=== PATIENT | female | born 1990 | race Caucasian/White ===

== ENCOUNTER → 2018-10-27 | Outpatient (CLI) | payer OTHER ==
[~2018-10-27] MED LIST: ALBU90OI; CODACEE120 PO; IBUP800; LABE100 PO; METF500 PO; ORTHO; OXYACE5T; Prednisone20 MG PO; SERT50; Verotin-Gr Cap1 EACH PO; YASMIN
== END | disposition home or self-care (01) ==
LOC: LAB SHORT 12:26 → LAB 12:26
PROVIDERS: Advanced Practice Midwife
DX: Z01.419 Encounter for gynecological examination (general) (routine) without abnormal findings (principal)
CPT/HCPCS: G0123

== ENCOUNTER 2021-10-11 00:28 | Emergency (ER) | payer BC, OTHER ==
[~2021-10-11] VITALS: Ht 160 cm; Wt 135.2 kg
[2021-10-11 01:43] LABS: Source, Urine Clean Catch
[2021-10-11 01:51] LABS: Bilirubin, Urine Neg (Neg); Blood, Urine Neg (Neg); Glucose Qualitative, Urine Neg (Neg); Ketones, Urine Neg (Neg); Leukocyte Esterase, Urine Neg (Neg); Nitrite, Urine Neg (Neg); Protein, Urine 2+ (Neg); Specific Gravity, Urine 1.015 (1.003-1.022); Urobilinogen, Urine NORM (Normal)
[2021-10-11 02:05] LABS: BASOPHILS ABSOLUTE AUTO 0.06 K/mm3 (0.00-0.23); BASOPHILS PERCENT AUTO 1 % (0-2); EOSINOPHILS ABSOLUTE AUTO 0.33 K/mm3 (0.00-0.68); EOSINOPHILS PERCENT AUTO 3 % (0-6); Hematocrit 44.7 % (33.0-51.0); Hemoglobin 14.3 g/dL (11.5-16.0); IMMATURE GRAN ABSOLUTE AUTO 0.03 K/mm3 (0.00-0.10); IMMATURE GRAN PERCENT AUTO 0 % (0-1); LYMPHOCYTES ABSOLUTE AUTO 3.89 K/mm3 (0.84-5.20); LYMPHOCYTES PERCENT AUTO 35 % (21-46); MONOCYTES ABSOLUTE AUTO 0.91 K/mm3 (0.16-1.47); MONOCYTES PERCENT AUTO 8 % (4-13); Mean Corpuscular HGB 26.8 pg (26.0-34.0); Mean Corpuscular Volume 84 fL (80-100); Mean Platelet Volume 8.5 fL (9.1-12.4); NEUTROPHILS ABSOLUTE AUTO 5.97 K/mm3 (1.96-9.15); NEUTROPHILS PERCENT AUTO 53 % (41-73); Platelet Count 319 K/mm3 (150-400); RDW Coefficient Variation 13.7 % (11.7-14.2); RDW Standard Deviation 41.8 fL (35.1-46.3); Red Blood Cell Count 5.33 M/mm3 (3.80-5.20); White Blood Cell Count 11.19 K/mm3 (4.00-11.30)
[2021-10-11 02:08] LABS: Albumin, Blood 3.7 g/dL (3.4-5.0); Albumin/Globulin Ratio 0.9 (0.8-1.8); Bilirubin, Total 0.3 mg/dL (0.1-1.0); Bun/Creatinine Ratio 18.5 (12.0-20.0); Calcium, Blood 9.5 mg/dL (8.5-10.1); Creatinine, Blood 0.6 mg/dL (0.40-1.00); Globulin, Blood 4.3 g/dL (2.2-4.0); Potassium, Blood 4.3 mmol/L (3.5-5.5)
[2021-10-11 02:12] LABS: Amorphous Light (0-Heavy); Appearance, Urine Clear (Clear); Bacteria Few /hpf; Color, Urine Yellow (P-Yellow); Red Blood Cells, Urine Not Seen /hpf (0-2); Squamous Epithelial Cells Mod /hpf (Few); White Blood Cells, Urine 0-2 /hpf (0-5)
[2021-10-11] MEDS ORDERED: ONDA4ODT MM (05:51)
== END 2021-10-11 05:59 | disposition home or self-care (01) ==
LOC: ER 00:28
PROVIDERS: Student in an Organized Health Care Education/Training Program
DX: R10.12 Left upper quadrant pain (principal); R11.2 Nausea with vomiting, unspecified; J45.909 Unspecified asthma, uncomplicated; Z79.899 Other long term (current) drug therapy; Z91.041 Radiographic dye allergy status; Z91.040 Latex allergy status
CPT/HCPCS: 36415; 74177; 80053; 81001; 81025; 85025; Q9967

== ENCOUNTER 2022-02-25 21:38 | Emergency (ER) | payer BC, OTHER ==
[~2022-02-25] VITALS: Ht 162.6 cm; Wt 136.1 kg
[~2022-02-25 21:38] MED LIST changes: +BENZ100A PO; +IBUP800 PO; +LIDO700A20 TOP; +ONDA4ODT MM; -SERT50; +SERT50 PO
[2022-02-25] MEDS ORDERED: METF500C PO (23:51)
== END 2022-02-26 00:23 | disposition home or self-care (01) ==
LOC: ER 21:38
DX: S23.29XA Dislocation of other parts of thorax, initial encounter (principal); J45.909 Unspecified asthma, uncomplicated; Z91.040 Latex allergy status; Z91.041 Radiographic dye allergy status; Z79.899 Other long term (current) drug therapy; X58.XXXA Exposure to other specified factors, initial encounter
CPT/HCPCS: 71046; A9270; J1885

== ENCOUNTER → 2022-03-26 | Outpatient (CLI) | payer BC, OTHER ==
[~2022-03-26] MED LIST changes: +METF500C PO
== END | disposition home or self-care (01) ==
LOC: LAB SHORT 08:03 → LAB 08:03 → PLD 08:03
DX: D22.9 Melanocytic nevi, unspecified (principal)
CPT/HCPCS: 88305

== ENCOUNTER 2023-12-11 12:43 | Emergency (ER) | payer BC ==
[~2023-12-11] VITALS: Ht 160 cm; Wt 142.9 kg
[2023-12-11] MEDS ORDERED: Ondansetron HCl 2 MG / ML 2ML Vial IV PRN (13:30)
[2023-12-11 13:58] LABS: BASOPHILS ABSOLUTE AUTO 0.05 K/mm3 (0.00-0.23); BASOPHILS PERCENT AUTO 1 % (0-2); EOSINOPHILS ABSOLUTE AUTO 0.12 K/mm3 (0.00-0.68); EOSINOPHILS PERCENT AUTO 1 % (0-6); Hematocrit 40.5 % (33.0-51.0); Hemoglobin 13.4 g/dL (11.5-16.0); IMMATURE GRAN ABSOLUTE AUTO 0.04 K/mm3 (0.00-0.10); IMMATURE GRAN PERCENT AUTO 0 % (0-1); LYMPHOCYTES ABSOLUTE AUTO 2.95 K/mm3 (0.84-5.20); LYMPHOCYTES PERCENT AUTO 29 % (21-46); MONOCYTES PERCENT AUTO 6 % (4-13); Mean Corpuscular HGB Conc 33.1 g/dL (31.5-36.5); Mean Corpuscular Volume 79 fL (80-100); Mean Platelet Volume 8.6 fL (9.1-12.4); NEUTROPHILS ABSOLUTE AUTO 6.58 K/mm3 (1.96-9.15); NEUTROPHILS PERCENT AUTO 64 % (41-73); Platelet Count 314 K/mm3 (150-400); RDW Coefficient Variation 14.7 % (11.7-14.2); RDW Standard Deviation 41.9 fL (35.1-46.3); Red Blood Cell Count 5.15 M/mm3 (3.80-5.20); White Blood Cell Count 10.34 K/mm3 (4.00-11.30)
[2023-12-11 14:25] LABS: Albumin, Blood 3.7 g/dL (3.4-5.0); Albumin/Globulin Ratio 0.9 (0.8-1.8); Bilirubin, Total 0.5 mg/dL (0.1-1.0); Bun/Creatinine Ratio 18.5 (12.0-20.0); Calcium, Blood 9.6 mg/dL (8.5-10.1); Creatinine, Blood 0.6 mg/dL (0.40-1.00); Globulin, Blood 4.2 g/dL (2.2-4.0); Total Protein, Blood 7.9 g/dL (6.4-8.2)
[2023-12-11] MEDS ORDERED: Ketorolac Tromethamine 30mg Vial IV ONE (15:20)
[2023-12-11] MEDS ORDERED: Metoclopramide HCl 5MG / ML 2ML Vial IV ONE (15:20)
[2023-12-11] MEDS ORDERED: OXYC5 PO (15:58)
[2023-12-11] MEDS ORDERED: ONDA4ODT MM (15:58)
[2023-12-11] MEDS ORDERED: ZOLOFT50 MG PO (15:58)
[2023-12-11] MEDS ORDERED: BUDESONIDE-FO10.2 G2 INH (15:58)
[2023-12-11] MEDS ORDERED: NS 1,000 ML IV SCH (16:20)
[2023-12-11] MEDS ORDERED: Reglan10 MG PO (17:04)
[2023-12-11] MEDS ORDERED: Percocet 5-3251 EACH PO (17:04)
[2023-12-11 17:30] VITALS: BP 166/93
== END 2023-12-11 17:49 | disposition home or self-care (01) ==
LOC: ER 12:43
PROVIDERS: Student in an Organized Health Care Education/Training Program
DX: G89.18 Other acute postprocedural pain (principal); R10.31 Right lower quadrant pain; R11.2 Nausea with vomiting, unspecified; Z88.8 Allergy status to other drugs, medicaments and biological substances; Z91.040 Latex allergy status; Z79.899 Other long term (current) drug therapy; Z79.84 Long term (current) use of oral hypoglycemic drugs; J45.909 Unspecified asthma, uncomplicated; G43.909 Migraine, unspecified, not intractable, without status migrainosus
CPT/HCPCS: 74177; 80053; 85025; 96361; 96374-59; 96375; 99284-25; J1885; J2405; J2765; J7030; Q9967

== ENCOUNTER 2024-07-28 08:50 | Day surgery (SDC) | payer BC, OTHER ==
[~2024-07-28] VITALS: Ht 162.6 cm; Wt 148.7 kg
[~2024-07-28 08:50] MED LIST changes: +BUDESONIDE-FO10.2 G2 INH; +Lactated Ringer's 1,000 ML IV SCH; +OXYC5 PO; +OZEMPIC1 MG/0.72 SC; +PANT20 PO; +Percocet 5-3251 EACH PO; +Reglan10 MG PO; +ZOLOFT50 MG PO
[2024-07-28] MEDS ORDERED: Lidocaine HCl 4% 5 ML SDA ONE (09:31)
[2024-07-28] MEDS ORDERED: propofoL 60 ML IV ONE (09:32)
[2024-07-28] MEDS ORDERED: propofoL 20 ML IV ONE (10:57)
[2024-07-28 11:20] VITALS: BP 105/60
--- NOTE | 2024-07-28 11:24 | NUR ---
07/28/24 1124 Mamie Nelson History, Chart, Medications and Allergies reviewed before start of procedure.
[2024-07-28 11:35] VITALS: BP 131/81
[2024-07-28 11:50] VITALS: BP 127/89
--- NOTE | 2024-07-28 12:16 | NUR ---
DISCHARGE NOTE PT A&OX4, VSS, BREATHING RA, TOLERATING PO INTAKE. PT HAS MILD CRAMPING TO LL ABDOMEN WHICH SHE STATES WAS THERE PRIOR TO PROCEDURE, NO OTHER COMPLAINTS. GLASSES IN PLACE. Patient up to Ambulate independently. Gait steady. Discharge instructions reviewed with patient. Patient verbalizes understanding. Copy given to patient to take home. Discharged via wheelchair to private car for ride home.
== END 2024-07-28 12:10 | disposition home or self-care (01) ==
LOC: ORSCMMR 08:50 → ORD 08:50 → ORSCMMR 08:53 → ORD 08:53 → ORSCMMR 12:10 → ORD 12:10
PROVIDERS: Internal Medicine Gastroenterology
PROC: 0DJD8ZZ Inspection of Lower Intestinal Tract, Via Natural or Artificial Opening Endoscopic (ICD-10-PCS; principal; 2024-07-28 10:15)
PROC: 0DJ08ZZ Inspection of Upper Intestinal Tract, Via Natural or Artificial Opening Endoscopic (ICD-10-PCS; principal; 2024-07-28 10:15)
DX: K62.5 Hemorrhage of anus and rectum (principal); R11.2 Nausea with vomiting, unspecified; R10.12 Left upper quadrant pain; K21.00 Gastro-esophageal reflux disease with esophagitis, without bleeding; Z79.899 Other long term (current) drug therapy; E66.01 Morbid (severe) obesity due to excess calories; Z68.44 Body mass index [BMI] 60.0-69.9, adult; E11.9 Type 2 diabetes mellitus without complications; Z79.84 Long term (current) use of oral hypoglycemic drugs; J45.909 Unspecified asthma, uncomplicated; F43.10 Post-traumatic stress disorder, unspecified
CPT/HCPCS: 82947; J2003; J2704; J7120